=== PATIENT | female | born 1990 ===

== ENCOUNTER 2019-11-05 23:48 | Emergency (ER) | payer OTHER ==
[2019-11-05] MEDS ORDERED: Ondansetron ODT 4 MG TAB ONE (23:59)
[2019-11-06] MEDS ORDERED: Ondansetron PF 4 MG/2 ML Vial ONE (00:02)
[2019-11-06 00:57] LABS: #Basophils 0.1 thou/uL (0.0-0.2); #Eosinphils 0.1 thou/uL (0.0-0.7); #Lymphocytes 1.9 thou/uL (1.20-3.40); #Monocytes 0.7 thou/uL (0.11-0.59); #Neutrophils 6.2 thou/uL (1.40-6.50); %Basophils 0.7 % (0.0-1.0); %Eosinophils 0.8 % (0.0-10.0); %Lymphocytes 21.2 % (21.0-51.0); %Monocytes 7.4 % (0.0-10.0); %Neutrophils 69.9 % (42.0-75.0); Mean Corpuscular Hemoglobin 32.5 pg (27.0-31.0); Mean Corpuscular Volume 95.5 fL (78.0-98.0); Platelet Count 269 thou/uL (130-400); RBC Distribution Width 12.2 % (11.5-14.5); White Blood Cell (WBC) Count 8.9 thou/uL (4.8-10.8)
[2019-11-06 01:17] LABS: ALT (SGPT) 13 U/L (8-55); AST (SGOT) 14 U/L (5-34); Alkaline Phosphatase 61 U/L (40-110); Anion Gap 10 mmol/L (10-20); BUN (Urea Nitrogen) 14 mg/dL (7.0-18.7); Bilirubin, Total Less than 0.2 mg/dL (0.2-1.2); Calc. Creatinine Clearance 0 mL/min (70-130); Calcium 8.9 mg/dL (7.8-10.44); Carbon Dioxide 26 mmol/L (22-29); Chloride 106 mmol/L (98-107); Estimated GFR-MDRD 54; Globulin 2.9 g/dL (2.4-3.5); Glucose 106 mg/dL (70-105); Lipase 30 U/L (8-78); Potassium 4.1 mmol/L (3.5-5.1); Protein, Total 6.9 g/dL (6.0-8.3); Sodium 138 mmol/L (136-145)
[2019-11-06 01:21] LABS: BHCG - Serum Negative (NEGATIVE); Pregs Control Background? CLEAR/WHITE (CLR/WHITE); Pregs Control Bar Appear? YES (CONTROL BAR)
--- NOTE | 2019-11-06 08:35 | RAD ---
PORTABLE CHEST 1 VIEW: DATE: 11/06/2019. TIME: 12:29 PM. HISTORY: Shortness of breath. Difficulty breathing. COMPARISON: 02/12/2004. FINDINGS: The heart size is normal. The lungs are expanded without focal areas of consolidation, pneumothorace s, or pleural effusions. IMPRESSION: No radiographic evidence of acute cardiopulmonary process. POS: [facility]
--- NOTE | 2019-11-08 11:56 | EKG ---
Test Reason : Blood Pressure : / mmHG Vent. Rate : 063 BPM Atrial Rate : 063 BPM P-R Int : 128 ms QRS Dur : 082 ms QT Int : 428 ms P-R-T Axes : 037 026 029 degrees QTc Int : 437 ms Normal sinus rhythm Normal ECG Confirmed by JEAN CARLOS DE LA CRUZ ([id number]), assignment editor ISABEL HICKEY ([id number] on 11/08/2019 11:56:00 AM Referred By: Confirmed By:JEAN CARLOS DE LA CRUZ
== END 2019-11-06 01:41 | disposition home or self-care (01) ==
LOC: ERS 23:48
DX: U07.1 COVID-19 (principal)
CPT/HCPCS: 71045; 80053; 83690; 84703; 85025; 93005; 96361; 96374; J2405; Q0162